=== PATIENT | female | born 1995 | race African-American/Black ===

== ENCOUNTER 2021-02-21 11:13 | Inpatient (IN) | payer OTHER ==
--- NOTE | 2021-02-21 11:36 | EDPHYS ---
Physician Documentation [facility] Name: Marina Gomes Age: 25 yrs Sex: Female : 1995 Arrival Date: 02/21/2021 Time: 11:15 Bed 2 Private MD: ED Physician Pasquale Cruz HPI: 02/21 11:37 This 25 yrs old Black Female presents to ER via Unassigned with complaints of Labor. kdr 11:37 The patient presents to the emergency department with possible uterine contractions, kdr Every 3 minutes and brief, abdominal pain, of the suprapubic area, vaginal bleeding, that is moderate. The estimated gestational age is 36 weeks. course: Risk/complications: no obvious risks or complications are appreciated. Previous pregnancies: in previous pregnancies patient has had vaginal delivery. Associated signs and symptoms: The patient has no apparent associated signs or symptoms. The patient has not experienced similar symptoms in the past. It is unknown whether or not the patient has recently seen a physician, Anecdotally she may have been seen at [facility] in [place] for her care. CERTIFIED ALCOHOL COUNSELOR: 11:37 Three, Full Term Two, Premature Zero kdr ROS: 11:37 Constitutional: Negative for fever, chills, and weight loss, Eyes: Negative for injury, kdr pain, redness, and discharge, ENT: Negative for injury, pain, and discharge, Neck: Negative for injury, pain, and swelling, Cardiovascular: Negative for chest pain, palpitations, and edema, Respiratory: Negative for shortness of breath, cough, wheezing, and pleuritic chest pain, Back: Negative for injury and pain, MS/Extremity: Negative for injury and deformity, Skin: Negative for injury, rash, and discoloration, Neuro: Negative for headache, weakness, numbness, tingling, and seizure activity. Psych: Negative for depression, anxiety, suicide ideation, homicidal ideation, and hallucinations, Allergy/Immunology: Negative for hives, rash, and allergies, Endocrine: Negative for neck swelling, polydipsia, polyuria, polyphagia, and marked weight changes, Hematologic/Lymphatic: Negative for swollen nodes, abnormal bleeding, and unusual bruising. 11:37 Abdomen/GI: Positive for abdominal pain. 11:37 : Positive for vaginal bleeding, There is a between the patient's legs on transfer from the ambulance stretcher to the ED bed. Exam: 11:37 Constitutional: This is a well developed, well nourished patient who is awake, alert, kdr and in no acute distress. Head/Face: Normocephalic, atraumatic. Eyes: Pupils equal round and reactive to light, extra-ocular motions intact. Lids and lashes normal. Conjunctiva and sclera are non-icteric and not injected. Cornea within normal limits. Periorbital areas with no swelling, redness, or edema. Neck: Trachea midline, no thyromegaly or masses palpated, and no cervical lymphadenopathy. Supple, full range of motion without nuchal rigidity, or vertebral point tenderness. No Meningismus. Chest/axilla: Normal chest wall appearance and motion. Nontender with no deformity. No lesions are appreciated. Cardiovascular: Regular rate and rhythm with a normal S1 and S2. No gallops, murmurs, or rubs. Normal PMI, no JVD. No pulse deficits. Respiratory: Lungs have equal breath sounds bilaterally, clear to auscultation and percussion. No rales, rhonchi or wheezes noted. No increased work of breathing, no retractions or nasal flaring. Back: No spinal tenderness. No costovertebral tenderness. Full range of motion. Skin: Warm, dry with normal turgor. Normal color with no rashes, no lesions, and no evidence of cellulitis. MS/ Extremity: Pulses equal, no cyanosis. Neurovascular intact. Full, normal range of motion. Neuro: Awake and alert, GCS 15, oriented to person, place, time, and situation. Cranial nerves II-XII grossly intact. Motor strength 5/5 in all extremities. Sensory grossly intact. Cerebellar exam normal. Normal gait. Psych: Awake, alert, with orientation to person, place and time. Behavior, mood, and affect are within normal limits. 11:37 Abdomen/GI: Inspection: gravid appearance, Bowel sounds: active, Palpation: soft, moderate abdominal tenderness, in the suprapubic area. 11:37 : Pelvic Exam: There is a infant on the bed between the patient's legs with the cord still intact upon initial evaluation., Gravid exam: Vital Signs: 11:02 BP 107 / 65; Pulse 80; Resp 24; Pulse Ox 99% ; ch5 11:10 BP 106 / 82; Pulse 78; Resp 22; Pulse Ox 99% ; ch5 11:15 BP 112 / 88; Pulse 91; Resp 20; Pulse Ox 96% ; ch5 11:20 BP 116 / 77; Pulse 68; Resp 23; Pulse Ox 100% ; ch5 Procedures: 11:37 Delivery of infant: Meconium was absent. Bleeding was moderate. Nuchal cord was not kdr present. Episiotomy was not performed. Baby delivered at 11:02 Baby delivered by Placenta delivered at 11:10 Cord cut and clamped. Mother doing well. Infant doing well. Infant in warmer. Suctioned infant's naso/oropharynx with bulb syringe. The L\T\D nurses took charge of the patient and recorded vital signs. And score. MDM: 11:36 Patient medically screened. kdr 11:45 Data reviewed: vital signs, nurses notes, lab test result(s). Counseling: I had a kdr detailed discussion with the patient and/or guardian regarding: the historical points, exam findings, and any diagnostic results supporting the discharge/admit diagnosis, lab results, the need for further work-up and treatment in the hospital. 02/21 11:19 Order name: CBC with Diff hb 02/21 11:19 Order name: BMP hb 02/21 11:19 Order name: Protime (+inr) hb 02/21 11:19 Order name: Ptt, Activated hb 02/21 11:19 Order name: Type And Screen hb 02/21 11:19 Order name: CBC with Automated Diff EDMS Administered Medications: No medications were administered Disposition Summary: 02/21/21 11:36 Hospitalization Ordered Hospitalization Status: Observation kdr Provider: William Casillas [facility] kdr Condition: Fair kdr Problem: new kdr Symptoms: have improved kdr Bed/Room Type: Standard kdr Room Assignment: kdr Diagnosis - Term delivery with moderate postdelivery bleeding kdr Forms: - Medication Reconciliation Form kdr - SBAR form kdr Signatures: Dispatcher [employer] EDMS Pasquale Cruz MD MD kdr
[2021-02-21] MEDS ORDERED: OXYTOCIN 10 UNIT/ML ML IV ONE ×2 (11:37→11:38)
[2021-02-21] MEDS ORDERED: NA CHLORIDE 0.9% 2,000 ML ONE (11:37)
[2021-02-21] MEDS ORDERED: Ringers Lactate 2,000 ML IV ONE (11:39)
[2021-02-21] MEDS ORDERED: METHYLERGONOVINE 0.2 MG TAB PO ONE (12:00)
[2021-02-21] MEDS ORDERED: LR IV ONE (12:00)
[2021-02-21] MEDS ORDERED: CARBOPROST TROME 250 MCG/ML IM ONE (12:00)
[2021-02-21] MEDS ORDERED: OXYTOCIN IV ONE (12:00)
[2021-02-21 12:07] LABS: Absolute Lymphocytes (CBC) 1.7 K/uL (0.7-4.9); Basophils % 0.4 % (0-1.3); Hematocrit 25.1 % (36.0-45.0); MPV 6.8 fL (7.6-11.3); RBC Red Blood Cell Count 3.08 M/uL (3.86-4.86)
[2021-02-21 12:13] LABS: BUN Blood Urea Nitrogen 4 mg/dL (7-18); Bicarbonate 20 mmol/L (21-32); Glucose Level 72 mg/dL (74-106); Potassium 3.4 mmol/L (3.5-5.1); Sodium Level 141 mmol/L (136-145)
--- NOTE | 2021-02-21 13:08 | ER ---
Nurse's Notes [facility] Name: Marina Gomes Age: 25 yrs Sex: Female : 1995 Arrival Date: 02/21/2021 Time: 11:15 Bed 2 Private MD: Diagnosis: Term delivery with moderate postdelivery bleeding Presentation: 02/21 11:00 Chief complaint: EMS states: contractions since this morning. PT reports she is 9 ss months and feels as if the baby is about to deliver. Coronavirus screen: Client denies travel out of the [place] in the last 14 days. Ebola Screen: Patient denies exposure to infectious person. Patient denies travel to an Ebola-affected area in the 21 days before illness onset. Onset of symptoms was February 21, 2021. 11:00 Method Of Arrival: EMS: [facility] 11:00 Acuity: DEEPA 1 ss WHEEL BORER: 11:37 Three, Full Term Two, Premature Zero kdr Assessment: 11:02 Reassessment: Spontaneous expulsion of fetus by vaginal delivery. ss Vital Signs: 11:02 BP 107 / 65; Pulse 80; Resp 24; Pulse Ox 99% ; ch5 11:10 BP 106 / 82; Pulse 78; Resp 22; Pulse Ox 99% ; ch5 11:15 BP 112 / 88; Pulse 91; Resp 20; Pulse Ox 96% ; ch5 11:20 BP 116 / 77; Pulse 68; Resp 23; Pulse Ox 100% ; ch5 ED Course: 11:10 Arm band placed on left wrist. ss 11:15 Patient arrived in ED. ds1 11:20 Inserted saline lock: 20 gauge in right antecubital area, using aseptic technique. ch5 11:29 Pasquale Cruz MD is Attending Physician. kdr 11:32 William Casillas MD is Hospitalizing Provider. kdr 11:43 Triage completed. ss 11:49 Inserted saline lock: 18 gauge in right wrist, using aseptic technique. ch5 Administered Medications: No medications were administered Outcome: 11:36 Decision to Hospitalize by Provider. kdr 13:08 Patient left the ED. hb Signatures: Pasquale Cruz MD MD [facility] Jacinta Brizuela ds1 Ginna Slade RN RN Mily Bowman RN RN Iban, Christopher, RN RN ch5 Corrections: (The following items were deleted from the chart) 11:46 11:02 Reassessment: Spontaneous expulsion of fetus by vaginal delivery. ss ss
--- NOTE | 2021-02-21 13:25 | PREOPHP ---
Date of Admission: 02/21/2021 History Of Present Illness: This is a black female, 3, para 2, 39 weeks gestation, followed antepartum, patient says, by [facility] without significant problems. She gives a significant history with her second delivery. She had significant bleeding and received blood transfusion. She has no histo ry of sickle cell anemia, but she says she has been anemic significantly during this . No o ther medical problems. She was brought in by ambulance and delivered in the ambulance before she was taken to the emergency room. She then delivered the placenta spontaneously, which was inspected and noted to be completely normal and intact, but has significant uterine hypotonus. IV drip Pitocin wa s given, IM Methergine 0.2 mg, Cytotec 100 mcg p.o. The patient's pulse remained in the 60-75 range and is still in the 70 range. In spite of the blood loss, it would probably be at least 2000 mL. Phillip bergeron has been transferred to our unit and is quite stable at this time and alert and reporting no pain. Inspection of the perineum showed no lacerations. Inspection of the placenta showed it to be comple tely intact without any missing cotyledons. Family History: Noncontributory. Allergies: SHE HAS NO ALLERGIES. Past Surgical History: She has had no surgery. Past Medical History: No medical problems noted. Physical Examination: HEENT: Clear. Pupils equal, round, and reactive to light and accommodation. Conjunctivae slightly pale, but nothing dramatic. Heart and Lungs: Clear. Breasts: Not examined. Abdomen: size with the fundus very firm and slightly below the umbilicus. Extremities: Clear without edema, cyanosis, or clubbing and as stated she has no vaginal lacerations . Diagnosis: Precipitous vaginal delivery followed by severe uterine hypotonus, now responding to medi cations. We will monitor the patient through the day and if she does well, send her home tomorrow. We will get more blood on her later to see if the blood count drops further, but right now she is com pletely without symptoms and pulse is in the 70 range. PRATEEK/MARK Voice ID: [id number]
--- NOTE | 2021-02-21 13:26 | PREOPHP ---
Date of Admission: 02/21/2021 Brought in by ambulance, delivered just before she was moved into the emergency room, 5 pounds 7 ounces female, Apgars unknown, but baby quite alert and without any problems at this point. Shortly thereafter, placenta was delivered, inspected, noted to be intact and normal. This patient suffered severe hypotonus. Two IVs were started, IV drip Pitocin, 0.2 mg of Methergine, 100 mcg of Cytotec p.o., and the uterus contracted down well and bleeding basically stopped. Estimated blood loss at least 2000 mL. The patient states that she was anemic during the . We are getting her records at this point from [facility], but in any event, whenever her blood count was prior to coming in, the patient is hemodynamically stable at this point and at this point, at least does not need any blood. We will stand her beside the bed a little bit later today and let her walk around with assistance and if she does well, we will keep the IV going till tomorrow so that she can continue to get IV drip Pitocin. Diagnosis: Term intrauterine , precipitous vaginal delivery, severe uterine hypo hypo hypotonus. PRATEEK/MARK Voice ID: [id number] RENAN
[2021-02-21 13:32] VITALS: O2SAT 100
[2021-02-21 14:42] VITALS: BMI 23.3
[2021-02-21] MEDS: METHYLERGONOVINE 0.2 MG TAB PO SCH ×2 (16:00→20:06)
[2021-02-21 17:02] LABS: Urine Appearance CLOUDY (Clear); Urine Bilirubin NEGATIVE (Negative); Urine Blood 3+ (Negative); Urine Color YELLOW (Yellow); Urine Glucose NEGATIVE (Negative); Urine Protein 2+ (Negative); Urine Specific Gravity 1.015 (1.005-1.030)
[2021-02-21 17:29] LABS: Urine Amorphous Sediment 1+ /HPF (NONE SEEN); Urine Bacteria 20-50 /HPF (<20); Urine Mucus 2+ /HPF (NONE SEEN); Urine RBC TNTC /HPF (NONE SEEN)
[2021-02-21] MEDS ORDERED: Oxycodone HCl/Acetaminophen 1 TAB TAB PO PRN (18:11)
[2021-02-21] MEDS: IBUPROFEN 600 MG TAB PO PRN (18:38)
[2021-02-21] MEDS ORDERED: NA CHLORIDE 0.9% 100 ML ONE ×2 (19:41→22:45)
[2021-02-21 20:24] LABS: Barbiturates NEGATIVE (NEGATIVE); Benzodiazepines NEGATIVE (NEGATIVE); Cocaine NEGATIVE (NEGATIVE); METHAMPHETAM NEGATIVE (NEGATIVE); Methadone NEGATIVE (NEGATIVE); Opiates NEGATIVE (NEGATIVE); THC Cannibis POSITIVE (NEGATIVE)
[2021-02-21 20:48] LABS: Phencyclidine NEGATIVE (NEGATIVE)
[2021-02-22] MEDS: METHYLERGONOVINE 0.2 MG TAB PO SCH ×4 (00:15→11:40)
[2021-02-22 04:04] LABS: Hematocrit 28.8 % (36.0-45.0)
--- NOTE | 2021-02-22 09:22 | DS ---
A 25-year-old 3, para 2, 39 weeks gestation, followed by Dr. Cooper at [facility] antepartum without apparent complications other than mild anemia. The patient gives a history that with her second deli very, she had severe bleeding and had to have a blood transfusion. The patient was brought into our facility through ambulance, had delivered in the ambulance apparently shortly after getting out of e ambulance and then was taken to the emergency room where she delivered the placenta and then experi enced severe uterine hypotonus. Estimated blood loss, much more than a 1000. Hematocrit on admissio n was 25, went to 19. She was given 2 units of blood. Hematocrit is now 28.8 or thereabout. The pa tient is completely asymptomatic with a pulse in the 50s. She is ambulating, voiding, no problems. Because the baby was born outside the hospital, the baby will be kept for 48 hours before dismissal, but from an obstetric standpoint, the patient is free to go at any time. She is to call Dr. Cooper for an appointment. She knows that during the next 6 weeks if she has any severe pain, fever, bleeding, or any other problems, to call Dr. Cooper for immediate assistance. She has already had her Tdap immu nization. This morning, she has no complaints or problems and is doing well. Final Diagnoses: Term intrauterine ; precipitous vaginal delivery; severe uterine hypotonus ; blood transfusion, 2 units; stable and will be dismissed when baby is eligible to go home. PRATEEK/MARK Voice ID: [id number] Report ID: [id number]
[2021-02-22] MEDS: IBUPROFEN 600 MG TAB PO PRN (16:09)
[2021-02-22 23:33] LABS: RPR (Rapid Plasma Reagin) NON-REACT (NON-REACT)
[2021-02-23 12:36] VITALS: TEMP 97.7
[2021-02-23 13:02] VITALS: BP 118/83
[2021-02-23] MEDS: IBUPROFEN 600 MG TAB PO PRN (13:11)
[2021-02-27 03:37] LABS: HBsAG Nonreactive (Nonreactive)
== END 2021-02-23 14:45 | disposition home or self-care (01) | DRG 776 ==
LOC: ER 11:13 → 2ND-WC 13:31
PROVIDERS: ADMIT Specialist; ATTEND Specialist
PROC: 10E0XZZ Delivery of Products of Conception, External Approach (ICD-10-PCS; principal; 2021-02-21)
PROC: 30233N1 Transfusion of Nonautologous Red Blood Cells into Peripheral Vein, Percutaneous Approach (ICD-10-PCS; 2021-02-21)
DX: O90.81 Anemia of the puerperium (principal); O62.2 Other uterine inertia
CPT/HCPCS: 36415; 36430; 80048; 80307; 81001; 85014; 85018; 85025; 85384; 85610; 85730; 86592; 86762; 86850; 86900; 86901; 87086; 87088; 87340; 99291; G0433; J2590; J7030; J7120; P9016; U0003